=== PATIENT | female | born 1970 | race Caucasian/White ===

== ENCOUNTER 2017-03-21 11:05 | Emergency (ER) | payer OTHER ==
[~2017-03-21] VITALS: Ht 152.4 cm; Wt 122.1 kg
[2017-03-21 12:22] LABS: HEMATOCRIT 36.3 % (36.0-46.0); MCH 30.6 PG (29.0-34.0); MCHC 33.3 G/DL (30.0-36.0); MCV 91.7 FL (83-99); MEAN PLAT.VOLUME 9.2 uM^3 (9.5-12.4); PLATELET COUNT 394 K/uL (156-360); RBC DIS.WIDTH-SD 47.2 % (39-53); RED BLOOD COUNT 3.96 M/uL (3.80-5.20); WHITE BLOOD COUNT 7.2 K/uL (4.1-10.2)
[2017-03-21 12:34] LABS: CHLORIDE 106 mEq/L (99-109); POTASSIUM 3.9 mEq/L (3.7-5.4); SODIUM 143 mEq/L (136-147)
[2017-03-21 12:36] LABS: GLUCOSE 98 mg/dL (70-99)
[2017-03-21 12:37] LABS: ANION GAP 10 MEQ/L (2-14)
[2017-03-21 12:38] LABS: TOTAL BILIRUBIN 0.4 mg/dL (0.0-1.0)
[2017-03-21 12:39] LABS: ALKALINE PHOSPHATASE 120 IU/L (3-129); SERUM ETHYL ALCOHOL < 10 mg/dL
[2017-03-21 12:40] LABS: GFR ESTIMATE (CALCULATED) > 59 mL/min/
[2017-03-21 12:41] LABS: UREA NITROGEN (BUN) 14 mg/dL (9-23)
[2017-03-21] MEDS ORDERED: LASIX20 MG PO (13:34)
[2017-03-21 13:49] VITALS: BP 133/76
== END 2017-03-21 13:49 | disposition home or self-care (01) ==
LOC: EME 11:05
PROVIDERS: Physician Assistant
DX: R60.0 Localized edema (principal); R21 Rash and other nonspecific skin eruption; L53.9 Erythematous condition, unspecified; R63.5 Abnormal weight gain; Z68.43 Body mass index [BMI] 50.0-59.9, adult; I10 Essential (primary) hypertension; F17.210 Nicotine dependence, cigarettes, uncomplicated
CPT/HCPCS: 71020; 80053; 85027; 99281; 99284; G0480

== ENCOUNTER 2017-09-06 11:21 | Emergency (ER) | payer OTHER ==
[~2017-09-06] VITALS: Ht 152.4 cm; Wt 124.1 kg
[~2017-09-06 11:21] MED LIST: LASIX20 MG PO
[2017-09-06 12:57] LABS: HEMATOCRIT 32.4 % (36.0-46.0); HEMOGLOBIN 10.7 G/DL (11.9-15.5); MCH 28.7 PG (29.0-34.0); MCV 86.9 FL (83-99); PLATELET COUNT 307 K/uL (156-360); RBC DIS.WIDTH-CV 17.4 % (11.8-14.6); RED BLOOD COUNT 3.73 M/uL (3.80-5.20); WHITE BLOOD COUNT 5.3 K/uL (4.1-10.2)
[2017-09-06 13:14] LABS: CHLORIDE 106 mEq/L (99-109); POTASSIUM 4.3 mEq/L (3.7-5.4); SODIUM 137 mEq/L (136-147)
[2017-09-06 13:16] LABS: GLUCOSE 98 mg/dL (70-99)
[2017-09-06 13:20] LABS: CREATININE 0.9 mg/dL (0.6-1.3); GFR ESTIMATE (CALCULATED) > 59 mL/min/; UREA NITROGEN (BUN) 13 mg/dL (9-23)
[2017-09-06] MEDS ORDERED: LASIX20 MG PO (15:06)
[2017-09-06] MEDS ORDERED: FUTURO RESTORI1 EACH MC (15:06)
[2017-09-06] MEDS ORDERED: AQUAPHOR OINTM105 GM TP (15:06)
[2017-09-06 15:19] VITALS: BP 139/86
== END 2017-09-06 15:20 | disposition home or self-care (01) ==
LOC: EME 11:21
PROVIDERS: Emergency Medicine
DX: R60.0 Localized edema (principal); I10 Essential (primary) hypertension; J45.909 Unspecified asthma, uncomplicated; M19.90 Unspecified osteoarthritis, unspecified site; F17.200 Nicotine dependence, unspecified, uncomplicated; Z88.5 Allergy status to narcotic agent
CPT/HCPCS: 71046; 80048; 83880; 85027; 99281; 99284